=== PATIENT | female | born 1960 | race Caucasian/White ===

== ENCOUNTER 2016-11-28 13:47 | Inpatient (IN) | payer MEDICAID ==
[2016-11-28] MEDS ORDERED: ONDANSETRON 4 MG/2 ML VIAL IVP ONE (14:10)
[2016-11-28] MEDS ORDERED: NS 1,000 ML IV ONE ×2 (14:10→15:51)
--- NOTE | 2016-11-28 14:20 | EDPHY ---
H & P Time Seen by Provider: 11/28/16 14:05 HPI/ROS: Chief complaint. Abdominal pain HPI. 56-year-old female abdominal pain for 2 days. Vomiting the 1st night but not since. However she has continued to have right lower quadrant abdominal pain. It is described as sharp without radiation. However when she pushes on her left side it seems to bother her in the lower right quadrant. Her pain is worse with movement. No fever. No urinary symptoms. Decreased appetite. No previous abdominal history or previous abdominal surgery. This ROS Constitutional. no fever/chills, no weakness Eyes. no problems with vision ENT. no sore throat, no nasal drainage Cardiovascular. no chest pain Respiratory. no shortness of breath, no cough Abdominal. Right lower quadrant abdominal pain with vomiting at onset . no problems urinating MS. no calf pain/swelling, no neck/back pain, no joint pain Skin. no rash Lymph. no swollen glands Neuro. no headache, no dizziness, no difficulty walking or with speech Past Medical/Surgical History: Healthy Social History: , nonsmoker, no alcohol Smoking Status: Never smoked Physical Exam: General Appearance: Alert pleasant well-developed female mild distress vital signs are stable Eyes: Pupils equal and round no pallor or injection. ENT, Mouth: Mucous membranes are moist. Respiratory: There are no retractions, lungs are clear to auscultation. Cardiovascular: Regular rate and rhythm. Gastrointestinal: Abdomen is soft with tenderness at McBurney's point in the right lower quadrant. There does appear to be some peritoneal irritation. Normal bowel sounds. No masses Neurological: Awake and alert, sensory and motor exams grossly normal. Skin: Warm and dry, no rashes. Musculoskeletal: Neck is supple nontender. Extremities symmetrical, full range of motion. Psychiatric: Patient is oriented X 3, there is no agitation. Constitutional: Initial Vital Signs Temperature (C) 37.2 C 11/28/16 14:00 Heart Rate 98 11/28/16 14:00 Respiratory Rate 18 11/28/16 14:00 Blood Pressure 102/67 11/28/16 14:00 O2 Sat (%) 94 11/28/16 14:00 O2 Delivery Mode Room Air Allergies/Adverse Reactions: No Known Allergies Allergy (Verified 11/28/16 13:59) Home Medications: Medication Instructions Recorded NK [No Known Home Meds] 03/03/16 Medical Decision Making - Diagnostics Imaging Results: Imaging Impressions Abdomen CT 11/28/16 14:37 Impression: Appendicitis present with dilated appendix and appendicoliths along with periappendiceal inflammatory changes but no abscess. These findings were discussed by telephone with Dr. Naga Rick [place] [address] abdomen pelvis with IV contrast reviewed by me and discussed with Dr. Daniels shows acute appendicitis. No obvious perforation Procedures: IV normal saline. Fentanyl for discomfort ED Course/Re-evaluation: IV Invanz I re-evaluated the patient see stable. She and I discussed imaging and lab results. We discussed treatment plan including need for admission and surgery. She expresses understanding and agreement I consulted and discussed case with Dr. Valencia, surgery, who will see the patient in the emergency department Differential Diagnosis: I considered diverticulitis, appendicitis, UTI, pyelonephritis - Data Points Laboratory Results: Laboratory Results 11/28/16 14:15 11/28/16 14:15 11/28/16 11/28/16 11/28/16 14:45 14:15 14:15 WBC 14.11 10^3/uL H 10^3/uL (3.80-9.50) RBC 5.20 10^6/uL 10^6/uL (4.18-5.33) Hgb 15.5 g/dL g/dL (12.6-16.3) Hct 45.5 % % (38.0-47.0) MCV 87.5 fL fL (81.5-99.8) MCH 29.8 pg pg (27.9-34.1) MCHC 34.1 g/dL g/dL (32.4-36.7) RDW 11.9 % % (11.5-15.2) Plt Count 293 10^3/uL 10^3/uL (150-400) MPV 9.5 fL fL (8.7-11.7) Neut % (Auto) 79.8 % H % (39.3-74.2) Lymph % (Auto) 11.0 % L % (15.0-45.0) [place] % (Auto) 7.9 % % (4.5-13.0) Eos % (Auto) 0.4 % L % (0.6-7.6) Baso % (Auto) 0.4 % % (0.3-1.7) Nucleat RBC Rel Count 0.0 % % (0.0-0.2) Absolute Neuts (auto) 11.27 10^3/uL H 10^3/uL (1.70-6.50) Absolute Lymphs (auto) 1.55 10^3/uL 10^3/uL (1.00-3.00) Absolute Monos (auto) 1.11 10^3/uL H 10^3/uL (0.30-0.80) Absolute Eos (auto) 0.06 10^3/uL 10^3/uL (0.03-0.40) Absolute Basos (auto) 0.05 10^3/uL 10^3/uL (0.02-0.10) Absolute Nucleated RBC 0.00 10^3/uL 10^3/uL (0-0.01) Immature Gran % 0.5 % % (0.0-1.1) Immature Gran # 0.07 10^3/uL 10^3/uL (0.00-0.10) Sodium 138 mEq/L mEq/L (134-144) Potassium 3.9 mEq/L mEq/L (3.5-5.2) Chloride 101 mEq/L mEq/L (97-110) Carbon Dioxide 25 mEq/l mEq/l (22-31) Anion Gap 12 mEq/L mEq/L (8-16) BUN 19 mg/dL mg/dL (7-23) Creatinine 0.7 mg/dL mg/dL (0.6-1.0) Estimated GFR > 60 Glucose 93 mg/dL mg/dL (70-100) Calcium 9.4 mg/dL mg/dL (8.5-10.4) Urine Color YELLOW Urine Appearance CLEAR Urine pH 6.0 (5.0-7.5) Ur Specific [place] 1.030 (1.002-1.030) Urine Protein 1+ H (NEGATIVE) Urine Ketones 1+ H (NEGATIVE) Urine Blood NEGATIVE (NEGATIVE) Urine Nitrate NEGATIVE (NEGATIVE) Urine Bilirubin NEGATIVE (NEGATIVE) Urine Urobilinogen NEGATIVE EU EU (0.2-1.0) Ur Leukocyte Esterase NEGATIVE (NEGATIVE) Urine RBC 1-3 /hpf /hpf (0-3) Urine WBC 1-3 /hpf /hpf (0-3) Ur Epithelial Cells TRACE /lpf /lpf (NONE-1+) Urine Bacteria NONE SEEN /hpf /hpf (NONE SEEN) Urine Mucus 2+ /lpf H /lpf (NONE-1+) Urine Glucose NEGATIVE (NEGATIVE) Medications Given: Discontinued Medications Sodium Chloride (Ns) 1,000 mls @ 0 mls/hr IV ONCE ONE PRN Reason: Wide Open Stop: 11/28/16 14:11 Last Admin: 11/28/16 14:18 Dose: 1,000 mls Ertapenem 1 gm/ Sodium (Chloride) 100 mls @ 200 mls/hr IV EDNOW ONE PRN Reason: Protocol Stop: 11/28/16 16:07 Last Admin: 11/28/16 15:50 Dose: 100 mls Sodium Chloride (Ns) 1,000 mls @ 0 mls/hr IV ONCE ONE PRN Reason: Wide Open Stop: 11/28/16 15:52 Last Admin: 11/28/16 15:45 Dose: 1,000 mls Ondansetron HCl (Zofran) 4 mg IVP EDNOW ONE Stop: 11/28/16 14:11 Last Admin: 11/28/16 14:18 Dose: 4 mg Departure - Departure Disposition: [facility] Inpatient Acute Clinical Impression: Acute appendicitis Qualifiers: Acute appendicitis type: with localized peritonitis Qualified Code(s): K35.3 - Acute appendicitis with localized peritonitis Condition: Fair
[2016-11-28 14:26] LABS: % IMMATURE GRANULYOCYTES 0.5 % (0.0-1.1); ABSOLUTE IMMATURE GRANULOCYTES 0.07 10^3/uL (0.00-0.10); ADD DIFF? NO; ADD MORPH? NO; ADD SCAN? NO; ATYPICAL LYMPHOCYTE FLAG 0 (0-99); FRAGMENT RBC FLAG 0 (0-99); HEMATOCRIT 45.5 % (38.0-47.0); HEMOGLOBIN 15.5 g/dL (12.6-16.3); LEFT SHIFT FLG 10 (0-99); LIPEMIA HEMOLYSIS FLAG 90 (0-99); MEAN CELL HEMOGLOBIN 29.8 pg (27.9-34.1); MEAN CELL HEMOGLOBIN CONCENTR. 34.1 g/dL (32.4-36.7); MEAN CELL VOLUME 87.5 fL (81.5-99.8); MEAN PLATELET VOLUME 9.5 fL (8.7-11.7); PLATELET CLUMPS FLAG 0 (0-99); PLATELET COUNT 293 10^3/uL (150-400); RED CELL DISTRIBUTION WIDTH 11.9 % (11.5-15.2)
[2016-11-28 14:39] LABS: ANION GAP 12 mEq/L (8-16); CALCIUM 9.4 mg/dL (8.5-10.4); CARBON DIOXIDE 25 mEq/l (22-31); CHLORIDE 101 mEq/L (97-110); CREATININE 0.7 mg/dL (0.6-1.0); GLOMERULAR FILTRATION RATE > 60; GLUCOSE 93 mg/dL (70-100); POTASSIUM 3.9 mEq/L (3.5-5.2); SODIUM 138 mEq/L (134-144)
[2016-11-28] MEDS ORDERED: IOPAMIDOL (ISOVUE-300) 100 ML BTL IV ONE (14:47)
[2016-11-28 15:17] LABS: COLOR YELLOW; LEUKOCYTE ESTERASE,URINE NEGATIVE (NEGATIVE); NITRITE,URINE NEGATIVE (NEGATIVE)
[2016-11-28 15:30] LABS: BACTERIA NONE SEEN /hpf (NONE SEEN); MUCUS 2+ /lpf (NONE-1+)
[2016-11-28] MEDS ORDERED: ERTAPENEM 1 GM in NS 100 ML IV ONE (15:38)
[2016-11-28] MEDS ORDERED: HYDROmorphONE/DILAUDID 1 MG/ML SYR IVP PRN ×2 (16:30→18:24)
[2016-11-28] MEDS ORDERED: fentaNYL 100 MCG/2 ML INJ IVP ONE (16:33)
[2016-11-28] MEDS ORDERED: BUPIVACAINE 0.25% 30 ML SDV ONE (16:38)
--- NOTE | 2016-11-28 16:44 | PDGENHP ---
History and Physical History and Physical: CC: Abd Pain HPI: 56 y/o female with 2 day hx abd pain, N/V, fever/chills presents to the ED for evaluation Dr. Rick performed a CT and requested surgical consultation PMH: tonsillectomy age 32 tobacco: quit age 42 EtOH: minimal LMP 4 years SH: has lived in [place] past 27 years/originally from [facility]/operates [employer] pre[employer] FH: [place] ROS: -melena/hemaochezia +++emesis, last had water 2 hours ago, no solid food since Saturday has never had colonoscopy PE: BP high 70's systolic after 1 liter NS P 90 pleasant woman appearing in mild distress - adenopathy lungs clear to ausc CVS RRR abd soft/+BS, localized RLQ tenderness with guarding pelvic/rectal deferred wbc 14K CT: markedly distended appendix/multiple fecaliths/perappendiceal inflammation and fluid suggesting early rupture vs. phlegmon, no significant free peritoneal fluid Imp: Advance appendicitis with moderate volume deficiency/possible early sepsis Rec: we discussed options and I recommended an open appendectomy. We reviewed the procedural risks, expected recovery and informed consent was obtained. She has received 1 gm Ertapenam and has a second liter of Normal Saline infusing /will continue volume replacement with LR johnny-operatively Anisha Valencia MD, FACS
[2016-11-28] MEDS ORDERED: MIDAZOLAM 2 MG/2 ML VIAL ONE (16:57)
[2016-11-28] MEDS ORDERED: fentaNYL 100 MCG/2 ML INJ ONE (17:03)
[2016-11-28] MEDS ORDERED: PROPOFOL 200 MG/20 ML VIAL ONE (17:03)
[2016-11-28] MEDS ORDERED: DEXAMETHASONE 4 MG/ML VIAL ONE (17:03)
[2016-11-28] MEDS ORDERED: LIDOCAINE 2% 5 ML SDV ONE (17:03)
[2016-11-28] MEDS ORDERED: ROCURONIUM 50 MG/5 ML VIAL ONE (17:03)
[2016-11-28] MEDS ORDERED: ONDANSETRON 4 MG/2 ML VIAL ONE (17:03)
[2016-11-28] MEDS ORDERED: ETOMIDATE 20 MG/10 ML VIAL ONE (17:14)
[2016-11-28] MEDS ORDERED: PHENYLEPHRINE HCL 100 MCG/ML SYR ONE (17:21)
[2016-11-28] MEDS ORDERED: SUGAMMADEX SODIUM 200 MG/2 ML VIAL IVP ONE (17:47)
--- NOTE | 2016-11-28 18:14 | POSTOPPROG ---
Post Op Note Date of Operation: 11/28/16 Surgeon: Bill Valencia (, FACS) Anesthesiologist: Mayra Lo DO Anesthesia: GET(General Endotracheal) Pre-op Diagnosis: appendicitis Post-op Diagnosis: acute gangrenous appendicitis Procedure: appendectomy Findings: gangrenous appendicitis without perforation Inf/Abcess present in the surg proc area at time of surgery?: Yes Depth: Organ Space EBL: Minimal
[2016-11-28] MEDS ORDERED: HYDROCODONE/APAP 5/325 TAB PO PRN (18:24)
[2016-11-28] MEDS ORDERED: ONDANSETRON 4 MG/2 ML VIAL IVP PRN (18:24)
[2016-11-28] MEDS ORDERED: LR 1,000 ML IV SCH (18:30)
--- NOTE | 2016-11-28 20:15 | GOP ---
[f rep st] OPERATIVE REPORT DATE OF OPERATION: 11/28/2016 SURGEON: Bill Valencia MD, FACS ANESTHESIA: General endotracheal ANESTHESIOLOGIST: Earl Lo DO. PREOPERATIVE DIAGNOSIS: Acute appendicitis with multiple appendicoliths and periappendiceal inflammation. POSTOPERATIVE DIAGNOSIS: Acute gangrenous appendicitis without perforation. PROCEDURE PERFORMED: Appendectomy. FINDINGS: Acute gangrenous appendicitis without lily perforation. Peritoneal culture submitted for aerobes and anaerobes. ESTIMATED BLOOD LOSS: 10 cc. DESCRIPTION OF PROCEDURE: After informed consent was obtained, the patient was brought to the operating room and placed under general anesthesia. The abdomen was prepped and draped in the usual fashion. Before proceeding, a time-out and identification of the patient was performed. 0.25% Marcaine was used to establish a regional field block lateral to the planned incision site. An oblique incision was made in the right lower quadrant , carried through skin and subcutaneous tissues, external oblique fascia. The internal oblique and transverse abdominis muscles were split. The peritoneum was incised. Peritoneal cavity was entered. There was a small amount of non foul-smelling peritoneal fluid. A specimen was submitted for culture. The appendix was liberated from multiple adhesions between the omentum and small bowel and had suppurative changes and was gangrenous from the midportion to the base. The mesoappendix was gently clamped, divided, and ligated with 2-0 Vicryl ligatures, and the appendix freed up and from the cecum with a single firing of the INGRID stapler without disrupting the fragile wall. Appendix was delivered from the field and submitted for permanent section. A small amount of oozing at the base of the mesoappendix was oversewn with a 3-0 Vicryl suture ligature. The pericolic gutter and pelvis were irrigated until the effluent was clear with normal saline. Hemostasis appeared secure. The peritoneum was closed with 3-0 Vicryl suture. The fascia was closed with 0 PDS suture. The remaining 20 mL of Marcaine were infiltrated into the fascial plane and subcutaneous tissues, which were then approximated with 2-0 Vicryl sutures. Skin was closed with 4-0 Monocryl suture in a subcuticular fashion. Mastisol and Steri-Strips were applied. Needle, sponge, and instrument count were correct. COMPLICATIONS: None. Copy requested to: Naga Rick MD /[id number]/MODL RADHA
[2016-11-28] MEDS: IBUPROFEN 600 MG TAB PO SCH (21:09)
[2016-11-29] MEDS: LR 1,000 ML IV SCH ×2 (02:35→12:03)
[2016-11-29] MEDS: IBUPROFEN 600 MG TAB PO SCH ×3 (05:07→21:34)
[2016-11-29 05:19] LABS: % IMMATURE GRANULYOCYTES 0.7 % (0.0-1.1); ABSOLUTE IMMATURE GRANULOCYTES 0.08 10^3/uL (0.00-0.10); ADD DIFF? NO; ADD MORPH? NO; ADD SCAN? NO; ATYPICAL LYMPHOCYTE FLAG 0 (0-99); FRAGMENT RBC FLAG 0 (0-99); HEMATOCRIT 36.7 % (38.0-47.0); LEFT SHIFT FLG 40 (0-99); LIPEMIA HEMOLYSIS FLAG 80 (0-99); MEAN CELL HEMOGLOBIN 30.3 pg (27.9-34.1); MEAN CELL HEMOGLOBIN CONCENTR. 32.7 g/dL (32.4-36.7); MEAN CELL VOLUME 92.7 fL (81.5-99.8); PLATELET CLUMPS FLAG 0 (0-99); PLATELET COUNT 184 10^3/uL (150-400); RED BLOOD CELL COUNT 3.96 10^6/uL (4.18-5.33); RED CELL DISTRIBUTION WIDTH 12.1 % (11.5-15.2)
[2016-11-29] MEDS ORDERED: NS BOLUS 1000 ML (Wide open) IV ONE (05:30)
--- NOTE | 2016-11-29 07:21 | SOAPPROG ---
SOAP Progress Note Assessment/Plan: Assessment: s/p appendectomy for gangrenous appendicitis persistant leukocytosis resolving ileus mild hypotension with pre-op volume depletion Plan: continue IV fluids/increase activity and diet continue Ertapenam anticipate discharge tomorrow Anisha Valencia MD, FACS 11/29/16 07:19 Subjective: feeling better/passing flatus Objective: Vital Signs Temp Pulse Resp BP Pulse Ox 36.5 C 54 L 16 79/51 L 93 11/29/16 03:55 11/29/16 05:30 11/29/16 03:55 11/29/16 05:30 11/29/16 03:55 Microbiology 11/28/16 17:33 Gram Stain - Final Appendix - Swab Laboratory Results 11/29/16 04:53 11/28/16 11/29/16 11/30/16 05:59 05:59 05:59 Intake Total 4920 Output Total 760 Balance 4160 - Pending Discharge Pending Discharge Within 24 Hours: Yes Pending Discharge Date: 11/30/16 Pending Discharge Time: 11:00 Physical Exam - Physical Exam General Appearance: alert, no apparent distress Respiratory: normal breath sounds Cardiac/Chest: regular rate, rhythm Abdomen: soft, distended, other (RLQ dressing dry/intact) ICD10 Worksheet Patient Problems: Problems Problem Status Onset Acute appendicitis Acute
[2016-11-29] MEDS: ERTAPENEM 1 GM in NS 100 ML IV SCH (10:15)
[2016-11-29] MEDS: ENOXAPARIN 40 MG/0.4 ML SYR SC SCH (10:15)
[2016-11-30] MEDS: IBUPROFEN 600 MG TAB PO SCH ×2 (04:52→13:57)
[2016-11-30 04:55] VITALS: RESP 16
[2016-11-30 05:21] LABS: % IMMATURE GRANULYOCYTES 0.4 % (0.0-1.1); ABSOLUTE IMMATURE GRANULOCYTES 0.02 10^3/uL (0.00-0.10); ADD DIFF? NO; ADD MORPH? NO; ADD SCAN? NO; ATYPICAL LYMPHOCYTE FLAG 0 (0-99); FRAGMENT RBC FLAG 0 (0-99); HEMATOCRIT 36.3 % (38.0-47.0); LEFT SHIFT FLG 10 (0-99); LIPEMIA HEMOLYSIS FLAG 80 (0-99); MEAN CELL HEMOGLOBIN 30.2 pg (27.9-34.1); MEAN CELL HEMOGLOBIN CONCENTR. 33.1 g/dL (32.4-36.7); MEAN CELL VOLUME 91.4 fL (81.5-99.8); MEAN PLATELET VOLUME 10.1 fL (8.7-11.7); PLATELET CLUMPS FLAG 0 (0-99); PLATELET COUNT 157 10^3/uL (150-400); RED BLOOD CELL COUNT 3.97 10^6/uL (4.18-5.33); RED CELL DISTRIBUTION WIDTH 12.1 % (11.5-15.2)
[2016-11-30] MEDS: ERTAPENEM 1 GM in NS 100 ML IV SCH (08:45)
[2016-11-30] MEDS: ENOXAPARIN 40 MG/0.4 ML SYR SC SCH (08:45)
[2016-11-30 13:29] VITALS: BP 96/73; PULSE 72; TEMP 98.5; O2SAT 93
--- NOTE | 2016-11-30 16:10 | PDDCSUM ---
Discharge Summary Discharge Summary: #[id number] LISS Valencia MD, FACS
--- NOTE | 2016-11-30 17:10 | GDS ---
[f rep st] DISCHARGE SUMMARY DISCHARGE DIAGNOSIS: Acute gangrenous appendicitis. PROCEDURE PERFORMED: 11/28, appendectomy. HOSPITAL COURSE: For details of admission history and physical, please see dictated summary. Brief ly, the patient is a previously healthy 56-year-old female who presented with acute appendicitis con firmed by CT. She had multiple fecaliths and considerable periappendiceal inflammation. I elected to proceed with an open appendectomy which was performed uneventfully under general anesthesia with delivery of a gangrenous appendix without perforation. Intraoperative cultures were no growth posto peratively and the Gram stain was negative. Her white blood cell count, which was elevated preopera tively, returned to normal before discharge. She received 1 dose of ertapenem preoperatively and 2 doses postoperatively. Antibiotics were discontinued prior to discharge. The patient had VTE proph ylaxis with intraoperative SCDs and Lovenox postoperatively. She was slowly advanced in her diet wh ich she tolerated well. Her incision was healing without sign of infection at time of discharge. DISCHARGE MEDICATIONS: Ibuprofen 600 mg p.o. four times daily p.r.n. pain, and Pearson 1 p.o. q.4 nora rs p.r.n. pain, #14. She was also advised to start taking Senokot 1-2 tablets p.o. twice daily. DISCHARGE INSTRUCTIONS: The patient will follow up in my office within the upcoming week. She was instructed in activity and diet advance. CONDITION AT TIME OF DISCHARGE: Improved. /[id number]/MODL
== END 2016-11-30 16:24 | disposition home or self-care (01) | DRG 339 ==
LOC: INTOOBSV 15:38 → F1N 19:25 → OBSVTOIN 11-29 14:00
PROVIDERS: ADMIT Surgery; ATTEND Surgery
PROC: 0DTJ0ZZ Resection of Appendix, Open Approach (ICD-10-PCS; principal; 2016-11-29)
DX: K35.3 Acute appendicitis with localized peritonitis (principal); K56.7 Ileus, unspecified
CPT/HCPCS: 96365; G0378; J1100; J1335; J1650; J2250; J2370; J2405; J2704; J3010; Q9967